=== PATIENT | male | born 1970 | race Two or more races ===

== ENCOUNTER 2020-04-04 12:12 | Emergency (ER) | payer OTHER ==
[~2020-04-04] VITALS: Ht 177.8 cm; Wt 72.6 kg
[2020-04-04 12:19] VITALS: BP 117/92
== END 2020-04-04 12:39 | disposition home or self-care (01) ==
LOC: ER 12:16
DX: S89.82XA Other specified injuries of left lower leg, initial encounter (principal); J45.909 Unspecified asthma, uncomplicated; X58.XXXA Exposure to other specified factors, initial encounter; Y93.89 Activity, other specified; Y92.89 Other specified places as the place of occurrence of the external cause; Y99.8 Other external cause status